=== PATIENT | female | born 1985 | race American Indian/Alaskan Native ===

== ENCOUNTER 2018-04-10 07:30 | Inpatient (IN) | payer OTHER ==
[2018-04-10] MEDS: LACTATED RINGERS 1,000 ML IV SCH ×3 (10:00→17:48)
[2018-04-10 10:28] LABS: Basophils % (Auto) 0.5 % (0.0-1.8); Eosinophils # (Auto) 0.1 K/mm3 (0.0-0.4); Hematocrit 27.8 % (30.3-42.9); Lymphocytes # (Auto) 1.2 K/mm3 (1.2-5.4); Lymphocytes % (Auto) 31.3 % (13.4-35.0); Mean Corpuscular HGB Conc 33 % (30-34); Mean Corpuscular Volume 78 fl (79-97); Monocytes # (Auto) 0.2 K/mm3 (0.0-0.8); Monocytes % (Auto) 6.3 % (0.0-7.3); Platelet Count 186 K/mm3 (140-440); Red Blood Count 3.57 M/mm3 (3.65-5.03); Red Cell Distribution Width 19.3 % (13.2-15.2)
[2018-04-10] MEDS ORDERED: ZOFRAN IV PRN (10:56)
[2018-04-10] MEDS ORDERED: PHENERGAN PR PRN (10:56)
[2018-04-10] MEDS ORDERED: PHENERGAN PO PRN (10:56)
[2018-04-10] MEDS ORDERED: NARCAN 0.4 MG/1 ML IV PRN (10:56)
[2018-04-10] MEDS ORDERED: SODIUM CHLORIDE FLUSH SYRINGE 10 ML IV SCH (11:00)
[2018-04-10] MEDS ORDERED: ANCEF/STERILE WATER 2 GM/20 ML 2 GM/20 ML SYRINGE IV NR (11:00)
[2018-04-10] MEDS ORDERED: SUBLIMAZE ONE (11:09)
[2018-04-10] MEDS ORDERED: SENSORCAINE/DEXTR 0.75-8.25% INFILTRATI ONE (11:09)
[2018-04-10] MEDS ORDERED: ASTRAMORPH PF 10MG/10ML ONE (11:10)
[2018-04-10] MEDS ORDERED: REGLAN IV ONE (11:30)
[2018-04-10] MEDS ORDERED: BICITRA PO ONE (11:30)
[2018-04-10] MEDS ORDERED: PEPCID IV ONE (11:30)
--- NOTE | 2018-04-10 11:36 | History and Physical Report ---
History of Present Illness Date of examination: 04/10/18 Date of admission: 04/10/18 09:39 Chief complaint: repeat csec History of present illness: 32 yo G [id number] EDC 04/26/18 at 37+5 weeks recommneded by MFM to performe repeat csec at 37=38 weeks. patient has hx of hx of myomectomy in 2016. hx of polyhydramnios that has resolved. She has hx of PTD and on david. She is GBS +. patient on iron for chronic anemia. Past History Past Surgical History: section, myomectomy Family/Genetic History: none Social history: single. denies: smoking, alcohol abuse, prescription drug abuse - Obstetrical History Expected Date of Delivery: 04/26/18 Actual Gestation: 37 Week(s) 5 Day(s) : 4 Para: 1 Hx # Term Pregnancies: 1 Number of Pregnancies: 1 Spontaneous Abortions: 1 Induced : 0 Number of Living Children: 2 Medications and Allergies Allergies Allergy/AdvReac Type Severity Reaction Status Date / Time No Known Allergies Allergy Unverified 12/08/17 21:01 Home Medications Medication Instructions Recorded Confirmed Last Taken Type Hydroxyprogesterone Caproate 250 mg IM QWEEK 04/10/18 04/10/18 04/04/18 History [[facility]] Iron 256 MG tab 1 tab PO QDAY 04/10/18 04/10/18 1 Day Ago History ~04/09/18 Multivitamin Tablet 1 tab PO QDAY 04/10/18 04/10/18 2 Days Ago History ~04/08/18 Active Meds: Active Medications Cefazolin Sodium (Ancef/Sterile Water 2 Gm/20 Ml) 2 gm in 20 mls @ 80 mls/hr IV PREOP NR; Protocol Stop: 04/10/18 16:00 Lactated Ringer's (Lactated Ringers) 1,000 mls @ 2,250 mls/hr IV PREOP MAMADOU Stop: 04/11/18 11:57 Last Admin: 04/10/18 11:00 Dose: 2,250 mls/hr Documented by: Oxytocin/Sodium Chloride (Pitocin/Ns 20 Unit/1000ml Drip) 20 units in 1,000 mls @ 0 mls/hr IV TITR MAMADOU Naloxone HCl (Narcan 0.4 Mg/1 Ml) 0.2 mg IV Q2MIN PRN PRN Reason: Res Rate </= 8 or 02 SAT < 92% Ondansetron HCl (Zofran) 4 mg IV Q8H PRN PRN Reason: Nausea And Vomiting Promethazine HCl (Phenergan) 25 mg PO Q6H PRN PRN Reason: Nausea And Vomiting Promethazine HCl (Phenergan) 25 mg VA Q6H PRN PRN Reason: Nausea And Vomiting Sodium Chloride (Sodium Chloride Flush Syringe 10 Ml) 10 ml IV PRN MAMADOU Review of Systems All systems: negative - Vital Signs Vital signs: Vital Signs Temp Pulse Resp BP 98.2 F 77 18 127/60 04/10/18 09:57 04/10/18 09:57 04/10/18 09:57 04/10/18 09:57 Temp Pulse Resp BP Pulse Ox 98.2 F 77 18 127/60 04/10/18 09:57 04/10/18 09:57 04/10/18 09:57 04/10/18 09:57 - Physical Exam Breasts: Positive: normal Cardiovascular: Regular rate, Normal S1 Lungs: Positive: Clear to auscultation, Normal air movement Abdomen: Positive: normal appearance, soft, normal bowel sounds. Negative: d istention, tenderness, guarding Genitourinary (Female): Positive: normal external genitalia, normal perenium Vagina: Positive: normal moisture Uterus: Positive: normal size, normal contour Anus/Rectum: Positive: normal perianal skin Extremities: Positive: normal Deep Tendon Reflex Grade: Normal +2 - Obstetrical FHR: category 1 Results Result Diagrams: 04/10/18 10:00 Abnormal lab results 04/10/18 Range/Units 10:00 WBC 3.7 L (4.5-11.0) K/mm3 RBC 3.57 L (3.65-5.03) M/mm3 Hgb 9.0 L (10.1-14.3) gm/dl Hct 27.8 L (30.3-42.9) % MCV 78 L (79-97) fl MCH 25 L (28-32) pg RDW 19.3 H (13.2-15.2) % All other labs normal. Assessment and Plan A/P HD#1 scheduled repeat csec and salpingectomy Discussed r/b/a of surgery which include bleedign, infection, damage to pelvic and non pelvic organs. Risk of hysterectomy and . patient agrees and signs consents will proceed repeat csec and salpingectomy
[2018-04-10] MEDS ORDERED: ANCEF/STERILE WATER 2 GM/20 ML IV ONE (11:45)
[2018-04-10] MEDS ORDERED: NACL 0.9% IR ONE ×2 (12:00→12:50)
[2018-04-10] MEDS ORDERED: WATER FOR IRRIG STERILE IR ONE (12:00)
[2018-04-10] MEDS: PITOCin/NS 20 UNIT/1000ML DRIP 20 UNITS/1,000 ML BAG IV SCH ×2 (12:14→13:00)
--- NOTE | 2018-04-10 13:47 | Procedure Note ---
OB Delivery Note - Delivery Date of Delivery: 04/10/18 Surgeon: FAISAL OBREGON Estimated blood loss: other (800cc) - Section Preop diagnosis: repeat Postop diagnosis: same section procedure: section, repeat low transverse, bilateral tubal ligation Disposition: PACU Complications: none Narrative: see op note - Infant A at 1 minute: 8 at 5 minutes: 9 Gender: Male
[2018-04-10] MEDS ORDERED: TORADOL IV PRN (13:50)
[2018-04-10] MEDS: DILAUDID IV PRN ×2 (14:00→14:45)
--- NOTE | 2018-04-10 14:00 | Operative Report ---
Operative Report Operative Report: PREOPERATIVE DIAGNOSES: 1. Term . 2. Desires permanent sterilization. 3. History previous csec and myomectomy 4. Recommeended delivery by [facility] POSTOPERATIVE DIAGNOSES: 1.-4 SLOANE 5. Nuchal cord x 1 PROCEDURE: 1. Repeat low-transverse section. 2. Salpingectomy 3. Anterior abdominal wall/uterine/bladder adhesiolysis. ANESTHESIA: Spinal SURGEON: Dr. Julieth Witt MD FINDINGS: Delivered vigorous male from cephalic presentation. Apgars 8/9. weight 7 pounds 11 ounces. suctioned with a bulb upon delivery of the head and body. Cord clamped and cut and passed to pediatric team present. Complete placenta manually extracted intact with three vessel cord. Extensive anterior abdominal wall adhesions with the anterior abdominal wall completely adhered to the anterior uterus throughout its entire length of the incision. Bilateral salpingectomy performed without difficulty via ligasure. ESTIMATED BLOOD LOSS: 800 mL. COMPLICATIONS: None. URINE OUTPUT: Per anesthesia records. Urine cleared postoperatively. IV FLUIDS: Per anesthesia records. The patient tolerated the procedure well and was taken to the recovery room in stable condition with stable vital signs. OPERATIVE TECHNIQUE: The patient was placed in a supine position after spinal/epidural anesthesia. She was prepped and draped in the usual manner for r epeat section. A sharp knife was used to make a Pfannenstiel skin incision at the site of the previous scar. This was carried through the subcutaneous tissue into the dense fibromuscular and fascial layer with a sharp knife. This incision was extended laterally with Cortez scissors. Dense fibromuscular layer was encountered from the patient's previous surgeries. Upon entry, incision was entered into the serosal and partial muscular layer of the anterior uterus and there was no free area to enter into the peritoneal cavity due to dense fibromuscular adhesions of the entire uterus to the anterior abdominal wall at the length of the incision. Fascia was previously superiorly and inferiorly from the muscular layer. A surgical window was created at the apical aspect of the incision in the direction of the uterine fundus. Finger was able to be passed and placed behind the dense adhesions between the uterus through anterior abdominal wall. This adhesion complex was transacted via Bovie cautery its entire length circumferentially freeing the uterus from its attachment to anterior abdominal wall. Inferiorly, difficulty was encountered with adhesion separation involving the bladder additionally to the uterus and the anterior abdominal wall. These adhesions likewise were surgically transacted via sharp, blunt, and electrocautery dissection. This was successfully done with out anterior entry into the bladder.. The uterus was then incised using a sharp knife and low transverse incision. This was extended with bandage scissors. The was delivered easily from a cephalic presentation. Bulb suction was done following delivery of the head and body. The cord clamped and cut and the infant passed to pediatric team present. Cord segment and cord blood was obtained. Com plete placenta manually extracted intact with three vessel cord. Vigorous male , Apgars 8/9, weight 7 pounds 11 ounces. Complete placenta with three vessels retrieved. Uterus was exteriorized from the abdominal cavity. Wet lap applied to the fundus and dry lap used to remove the remaining membranous tissue from the lining. Ferguson clamps placed at the uterine incision angles and the inferior incision lip. A #1vicryl suture closed the uterus in running continuous interlocking closure. Good hemostasis upon completion of the closure. Laparotomy pads placed in the posterior cul-de-sac to remove any blood or clots. The uterus was returned to the abdominal cavity, after using #1 chromic suture to close the anterior uterine incision, that was partial thickness through the serosal end of the muscular layer at midline adhesion. This was closed with chromic suture in a running continuous interlocking closure with good hemostasis. Attention was then focused on the bilateral tubal ligation. Aris clamp placed in the mid fallopian tube and elevated. Ligasure was used to remove/transect the entire left tube. The other side was perforemed in normal fashion. This salpingectomy procedure was done in a bilateral fashion. Upon completion of salpingectomy Uterus was returned to the abdominal cavity. Left and right gutters examined and found to be clean and dry. Evaluation of the low uterine segment incision revealed continued hemostasis. Oozing was encountered and hemostasis acheived with hemostatic agent. Interceed was then placed on the low uterine incision and the low anterior uterine aspect. The midline rectus including peritoneum was re- approximated with simple interrupted chromic sutures. Irrigation of the muscular layer with good hemostasis noted. The fascia was closed with #1 Vicryl in a running continuous closure. Subcutaneous tissue was irrigated, additional hemostasis with Bovie cautery. The skin was closed with jay jay needle.
[2018-04-10] MEDS ORDERED: BENADRYL IV PRN (17:03)
[2018-04-10] MEDS: BENADRYL PO PRN (23:33)
[2018-04-10] MEDS: PERCOCET 5/325 PO PRN (23:33)
[2018-04-11] MEDS: D5LR 1,000 ML IV SCH ×2 (00:45→06:41)
[2018-04-11 00:53] LABS: Hematocrit 24.7 % (30.3-42.9); Hemoglobin 8.1 gm/dl (10.1-14.3)
[2018-04-11] MEDS: PERCOCET 5/325 PO PRN ×4 (05:52→20:29)
[2018-04-11] MEDS: BENADRYL PO PRN ×4 (05:52→22:12)
--- NOTE | 2018-04-11 08:20 | Progress Note ---
Assessment and Plan - Patient Problems (1) Previous delivery, delivered Current Visit: Yes Status: Acute Plan to address problem: increase benadryl dose routine postop Subjective - Subjective Date of service: 04/11/18 Interval history: Patient is experiencing pruritis from the spinal anesthesia. States pain is controlled. Reports being able to void Patient reports: appetite normal, voiding normally, pain well controlled Objective - Vital Signs Latest vital signs: Vital Signs Temp Pulse Resp BP BP Pulse Ox 04/11/18 07:08 97.6 F 75 18 105/65 98 04/11/18 05:55 97.9 F 86 18 100/56 04/11/18 00:55 98.1 F 79 18 109/67 04/10/18 20:40 98.2 F 79 20 105/57 97 04/10/18 16:34 97.6 F 68 20 112/66 95 04/10/18 14:44 97.6 F 71 16 107/73 98 04/10/18 14:25 97.6 F 59 L 13 101/75 98 04/10/18 14:10 57 L 14 105/68 99 04/10/18 13:56 100 H 14 109/68 99 04/10/18 13:40 52 L 12 110/66 98 04/10/18 13:35 55 L 14 110/62 98 04/10/18 13:30 54 L 14 107/64 98 04/10/18 13:26 97.6 F 55 L 12 106/58 99 04/10/18 09:57 98.2 F 77 18 127/60 Intake and Output 04/10/18 04/11/18 04/11/18 22:59 06:59 14:59 Intake Total 120 1341.667 240 Output Total 100 700 Balance 20 641.667 240 Intake: IV 741.667 D5lr 1,000 ml @ 125 mls/ 741.667 hr IV DIRECT MAMADOU Rx#: [id number] Oral 120 240 Intake, Free Water 600 Output: Urine 100 700 Indwelling Catheter 100 700 Other: Total, Intake Amount 120 240 Total, Output Amount 100 200 - Labs Labs: Abnormal lab results 04/10/18 04/11/18 Range/Units 10:00 00:23 WBC 3.7 L (4.5-11.0) K/mm3 RBC 3.57 L (3.65-5.03) M/mm3 Hgb 9.0 L 8.1 L (10.1-14.3) gm/dl Hct 27.8 L 24.7 L (30.3-42.9) % MCV 78 L (79-97) fl MCH 25 L (28-32) pg RDW 19.3 H (13.2-15.2) %
[2018-04-12] MEDS: PERCOCET 5/325 PO PRN ×5 (02:10→21:16)
[2018-04-12] MEDS: BENADRYL PO PRN (03:36)
[2018-04-12] MEDS: IBUPROFEN PO PRN ×2 (12:19→18:47)
[2018-04-12] MEDS ORDERED: LANSINOH TP PRN (12:30)
--- NOTE | 2018-04-12 14:06 | Progress Note ---
Assessment and Plan - Patient Problems (1) Previous delivery, delivered Current Visit: Yes Status: Acute Plan to address problem: routine postop care Subjective - Subjective Date of service: 04/12/18 Interval history: Patient having discomfort with . Experiencing incisional pain. Denies any drainage. Tolerating diet. Patient is voiding. Patient reports: appetite normal, voiding normally [place]: doing well, nursing well Objective - Vital Signs Latest vital signs: Vital Signs Temp Pulse Resp BP BP Pulse Ox 04/12/18 07:27 98.8 F 85 18 114/78 95 04/12/18 00:57 98 H 113/74 98 04/12/18 00:00 98.0 F 98 H 18 113/74 98 04/11/18 16:40 98.4 F 90 20 121/53 99 Intake and Output 04/11/18 04/12/18 04/12/18 22:59 06:59 14:59 Intake Total 480 Balance 480 Intake: Oral 240 Intake, Free Water 240 Other: Total, Intake Amount 240 # Voids Indwelling Catheter 1 1 2 - Exam Uterus: Present: normal Incision: Present: normal
--- NOTE | 2018-04-12 14:08 | Discharge Summary ---
Providers - Providers Date of Admission: 04/10/18 09:39 Date of discharge: 04/13/18 Attending physician: FAISAL OBREGON MD Primary care physician: FAISAL OBREGON MD Hospitalization Reason for admission: section Delivery: Procedure: section, repeat low transverse Incision: normal Discharge diagnosis: IUP at term delivered [place] baby: male Hospital course: Patient admitted for scheduled delivery. See op note. Unremarkable postop Condition at discharge: Good Disposition: DC-01 TO HOME OR SELFCARE - Discharge Diagnoses (1) Previous delivery, delivered Status: Acute Plan - Discharge Medications Prescriptions: Ferrous Sulfate 325 mg PO BID #60 tablet. Ibuprofen [Motrin] 600 mg PO Q8H PRN #30 tablet PRN Reason: Pain oxyCODONE /ACETAMINOPHEN [Percocet 5/325] 1 tab PO Q6HR PRN #30 tablet PRN Reason: Pain - Provider Discharge Summary Activity: no sex for 6 weeks, no heavy lifting 4 weeks, no strenuous exercise Diet: routine Instructions: routine Additional instructions: [] Smoking cessation referral if applicable(refer to patient education folder for contact #) [] Refer to [facility]'s [facility] Booklet Call your doctor immediately for: * Fever > 100.5 * Heavy vaginal bleeding ( >1 pad per hour) * Severe persistent headache * Shortness of breath * Reddened, hot, painful area to leg or breast * Drainage or odor from incision. * Keep incision clean and dry at all times and follow doctor's instructions regarding bathing/showering schedule incision check in 2 weeks - Follow up plan
[2018-04-12] MEDS ORDERED: ANTIBIOTIC OINT TP PRN (23:10)
[2018-04-13] MEDS: IBUPROFEN PO PRN (04:28)
[2018-04-13] MEDS ORDERED: AFLURIA QUAD 2018-2019 SYRINGE IM ONE (11:30)
[2018-04-13 12:43] VITALS: BP 118/81
== END 2018-04-13 13:01 | disposition home or self-care (01) | DRG 766 ==
LOC: APU 09:39 → OB 15:10
PROVIDERS: ADMIT Obstetrics & Gynecology; ATTEND Obstetrics & Gynecology
PROC: 10D00Z1 Extraction of Products of Conception, Low, Open Approach (ICD-10-PCS; principal; 2018-04-10)
PROC: 0UT70ZZ Resection of Bilateral Fallopian Tubes, Open Approach (ICD-10-PCS; 2018-04-10)
PROC: 0DNW0ZZ Release Peritoneum, Open Approach (ICD-10-PCS; 2018-04-10)
DX: O34.211 Maternal care for low transverse scar from previous cesarean delivery (principal); O26.893 Other specified pregnancy related conditions, third trimester; L29.9 Pruritus, unspecified; O69.81X0 Labor and delivery complicated by cord around neck, without compression, not applicable or unspecified; O99.89 Other specified diseases and conditions complicating pregnancy, childbirth and the puerperium; N73.6 Female pelvic peritoneal adhesions (postinfective); O99.824 Streptococcus B carrier state complicating childbirth; O99.02 Anemia complicating childbirth; D64.9 Anemia, unspecified; Z3A.37 37 weeks gestation of pregnancy; Z37.0 Single live birth; Z79.899 Other long term (current) drug therapy
CPT/HCPCS: 36415; 85014; 85018; 85025; 86592; 86850; 86900; 86901; 88302; 90686; G0378; C1765; J0690; J1170; J1200; J1885; J2274; J2405; J2590; J2765; J3010; J7120; J7121